=== PATIENT | male | born 1945 | race Caucasian/White ===

== ENCOUNTER 2020-06-25 11:03 | Emergency (ER) | payer MEDICARE, OTHER ==
[~2020-06-25] VITALS: Ht 182.9 cm; Wt 68.9 kg
--- NOTE | 2020-06-25 11:03 | NUR ---
[facility]EN [facility] FOR WEAKNESS AND POOR ORAL INTAKE x 1WEEK, TO ER BED 14, HOOKED TO [facility], BP CUFF AND POX. CHANGED TO HOSP GOWN, WARM BLANKET PROVIDED, PATIENT AAO x 1, BREATHING EVEN AND UNLABORED, NAD NOTED. DR ZARAGOZA AT BEDSIDE
--- NOTE | 2020-06-25 11:44 | NUR ---
BLOOD AND CULTURES DRAWN
[2020-06-25 11:49] LABS: BASOPHILS # (AUTO) 0.1 /CMM (0.0-0.2); BASOPHILS % (AUTO) 0.9 % (0.0-2.0); EOSINOPHILS % (AUTO) 1.6 % (0.0-6.0); HEMATOCRIT 33 % (39-51); LYMPHOCYTES # (AUTO) 2.8 /CMM (0.8-4.8); LYMPHOCYTES % (AUTO) 28.1 % (20.0-44.0); MEAN CORPUSCULAR HGB CONC 33 g/dl (31.0-36.0); MEAN CORPUSCULAR VOLUME 95 fL (80-96); MONOCYTES # (AUTO) 0.7 /CMM (0.1-1.30); MONOCYTES % (AUTO) 6.6 % (2.0-12.0); NEUTROPHILS # (AUTO) 6.2 /CMM (1.8-8.9); NEUTROPHILS % (AUTO) 62.8 % (43.0-81.0); PLATELET COUNT (AUTO) 427 /CMM (150-450); RED BLOOD CELL COUNT(AUTO) 3.49 MIL/uL (4.5-6.0); WHITE BLOOD COUNT (AUTO) 9.9 K/uL (4.3-11.0)
--- NOTE | 2020-06-25 12:06 | NUR ---
PATIENT NOT ABLE TO PROVIDE URINE SAMPLE. MD [place]
--- NOTE | 2020-06-25 12:39 | NUR ---
CALLED NOAH HONEYCUTT [phone] [place] [facility] [place].
[2020-06-25 12:43] LABS: ALANINE AMINOTRANSFERASE 35 U/L (12-78); ALBUMIN 2.4 g/dL (3.4-5.0); ALKALINE PHOSPHATASE 133 U/L (46-116); ASPARTATE AMINOTRANSFERASE 23 U/L (15-37); BILIRUBIN,DIRECT 0.1 mg/dL (0.0-0.2); BILIRUBIN,TOTAL 0.2 mg/dL (0.2-1.0); CALCIUM, SERUM 8.7 mg/dL (8.5-10.1); CARBON DIOXIDE 27 mmol/L (21-32); CHLORIDE 104 mmol/L (98-107); CREATININE 0.7 mg/dL (0.6-1.3); GLUCOSE 157 mg/dL (74-106); POTASSIUM 3.6 mmol/L (3.5-5.1); SODIUM SERUM 141 mmol/L (136-145); TOTAL PROTEIN, SERUM 7.6 g/dL (6.4-8.2); UREA NITROGEN, BLOOD 15 mg/dL (7-18)
--- NOTE | 2020-06-25 13:26 | NUR ---
received a call from the lab regarding covid 19 result "negative".
--- NOTE | 2020-06-25 13:43 | NUR ---
CALLED AM [facility] ETA IS PER SAMIA [phone]
--- NOTE | 2020-06-25 15:29 | NUR ---
Patient discharged to [facility] in stable condition. Patient will be transffered back to facility. Written and verbal after care instructions given to RA., verbalizes understanding of instruction.
[2020-06-25 15:42] VITALS: BP 127/65
== END 2020-06-25 15:30 ==
LOC: ER 11:06
DX: R53.1 Weakness (principal); E87.2 Acidosis; Z20.828 Contact with and (suspected) exposure to other viral communicable diseases; R47.01 Aphasia
CPT/HCPCS: 36415; 71045-TC; 80048-TC; 80076-TC; 83605-TC; 84484-TC; 85025-TC; 85730-TC; 87040-TC; C9803